=== PATIENT | female | born 1995 | race American Indian/Alaskan Native ===

== ENCOUNTER 2020-08-05 22:40 | Emergency (ER) | payer MEDICAID ==
[2020-08-06 00:34] VITALS: BP 117/59
[2020-08-06] MEDS ORDERED: dexAMETHasone 20 MG/5 ML VIAL IM ONE (02:36)
[2020-08-06] MEDS ORDERED: KETOROLAC 30 MG/1 ML INJ IM ONE (02:36)
--- NOTE | 2020-08-06 04:57 | Emergency Department Report ---
ED Extremity Problem HPI - General Chief complaint: Extremity Problem,Nontraumatic Stated complaint: LT ARM PAIN Source: patient Mode of arrival: Ambulatory Limitations: No Limitations - History of Present Illness Initial comments: Patient is a 24-year-old -[place] female with no past medical history presents to the ED with complaint of acute onset persistent left hand pain that radiates to the left wrist and left forearm for the last 1 month. Patient states that the pain is worse with any left thumb movement and that it gets worse and radiates to the left forearm. Patient states that she performs heavy lifting at work and that she was initially evaluated at an urgent care clinic and was given ibuprofen and a Velcro splint for the left wrist. Patient states that in the last 1 week, the pain has worsened especially in the last 2 days. Patient denies fall, traumatic injury, fever, chills, nausea, vomiting, numbness and tingling or weakness of left hand, neck pain, chest pain, shortness of breath or back pain. MD Complaint: extremity pain (left thumb, left wrist pain), joint paint (left wrist and hand pain) -: Sudden, month(s) (1) Location: left (hand), upper extremity (left hand and wrist) History of Same: Yes -: Yes arthralgia, No fever, No associated dyspnea, No associated chest pain Radiation: proximal Severity scale (0 -10): 7 Quality: aching, sharp Consistency: constant Improves with: nothing Worsens with: weight bearing, exertion, palpation Associated Symptoms: denies other symptoms, arthralgias (left hand and wrist pain). denies: chest pain, shortness of breath, fever, myalgias - Related Data Previous Rx's Medication Instructions Recorded Last Taken Type Gabapentin 300 mg PO BID #30 cap 08/06/20 Unknown Rx Prednisone [predniSONE 10 mg 10 mg PO .TAPER #21 tab.ds.pk 08/06/20 Unknown Rx (6-Day Pack, 21 Tabs)] traMADoL [Ultram] 50 mg PO Q6HR PRN #12 tablet 08/06/20 Unknown Rx ED Review of Systems ROS: Stated complaint: LT ARM PAIN Other details as noted in HPI Constitutional: denies: chills, fever Eyes: denies: eye pain, eye discharge, vision change ENT: denies: ear pain, throat pain Respiratory: denies: cough, shortness of breath, wheezing Cardiovascular: denies: chest pain, palpitations Endocrine: no symptoms reported Gastrointestinal: denies: abdominal pain, nausea, diarrhea Genitourinary: denies: urgency, dysuria, discharge Musculoskeletal: arthralgia (Left hand and wrist pain). denies: back pain, joint swelling Skin: denies: rash, lesions Neurological: denies: headache, weakness, paresthesias Psychiatric: denies: anxiety, depression Hematological/Lymphatic: denies: easy bleeding, easy bruising ED Past Medical Hx - Past Medical History Previous Medical History?: No - Surgical History Past Surgical History?: No - Social History Smoking Status: Never Smoker Substance Use Type: None - Medications Home Medications: Home Medications Medication Instructions Recorded Confirmed Last Taken Type Gabapentin 300 mg PO BID #30 cap 08/06/20 Unknown Rx Prednisone [predniSONE 10 mg 10 mg PO .TAPER #21 tab.ds.pk 08/06/20 Unknown Rx (6-Day Pack, 21 Tabs)] traMADoL [Ultram] 50 mg PO Q6HR PRN #12 tablet 08/06/20 Unknown Rx ED Physical Exam - General Limitations: No Limitations General appearance: alert, in no apparent distress - Head Head exam: Present: atraumatic, normocephalic, normal inspection - Eye Eye exam: Present: normal appearance, PERRL, EOMI Pupils: Present: normal accommodation - ENT ENT exam: Present: normal exam, normal orophraynx, mucous membranes moist, TM's normal bilaterally, normal external ear exam - Neck Neck exam: Present: normal inspection, full ROM - Respiratory Respiratory exam: Present: normal lung sounds bilaterally. Absent: respiratory distress, wheezes, rales, stridor, chest wall tenderness, decreased breath sounds, prolonged expiratory - Cardiovascular Cardiovascular Exam: Present: regular rate, normal rhythm, normal heart sounds. Absent: systolic murmur, diastolic murmur, rubs, gallop - GI/Abdominal GI/Abdominal exam: Present: soft, normal bowel sounds. Absent: tenderness, guarding, rebound, hyperactive bowel sounds, hypoactive bowel sounds - Extremities Exam Extremities exam: Present: normal inspection, full ROM, tenderness (Palpable left hand and thumb, as well as left wrist tenderness), normal capillary refill - Back Exam Back exam: Present: normal inspection, full ROM. Absent: tenderness, CVA tenderness (R), CVA tenderness (L), muscle spasm, paraspinal tenderness, vertebral tenderness - Neurological Exam Neurological exam: Present: alert, oriented X3, CN II-XII intact, normal gait, reflexes normal - Psychiatric Psychiatric exam: Present: normal affect, normal mood - Skin Skin exam: Present: warm, dry, intact, normal color. Absent: rash ED Course Vital Signs 08/06/20 00:30 Temperature 98.1 F Pulse Rate 70 Respiratory 17 Rate Blood Pressure 117/59 [Right] O2 Sat by Pulse 100 Oximetry ED Medical Decision Making - Medical Decision Making This is a 24-year-old -[place] female with no past medical history presents to the ED with complaint of acute onset persistent left hand pain that radiates to the left wrist and left forearm for the last 1 month. Patient states that the pain is worse with any left thumb movement and that it gets worse and radiates to the left forearm. Patient states that she performs heavy lifting at work and that she was initially evaluated at an urgent care clinic and was given ibuprofen and a Velcro splint for the left wrist. Patient states that in the last 1 week, the pain has worsened especially in the last 2 days. In the ED, patient is alert and oriented x3 and is not in distress. Patient was treated for pain in the ED and on reevaluation, patient's pain is well controlled with medications. Patient was discharged home on oral pain medications and advised to follow-up with her primary care physician in 7 to 10 days for reevaluation or return to the ED immediately if symptoms get worse. - Differential Diagnosis Tendinitis; muscle strain; muscle spasm; osteoarthritis; carpal tunnel synd Critical care attestation.: If time is entered above; I have spent that time in minutes in the direct care of this critically ill patient, excluding procedure time. ED Disposition Clinical Impression: Tendinitis of finger of left hand, Left wrist tendinitis Disposition: - TO HOME OR SELFCARE Is pt being admited?: No Does the pt Need Aspirin: No Condition: Stable Instructions: Extensor Pollicis Longus Tendinitis, Tendinitis, [id number] Additional Instructions: Your symptoms likely due to tendinitis or inflammation of the tendons of your left hand and wrist. Therefore take medications as advised, drink plenty of fluids and follow-up with your primary care physician in 7 to 10 days for reevaluation. Return to the ED immediately if symptoms get worse. Prescriptions: Gabapentin 300 mg PO BID #30 cap Prednisone [predniSONE 10 mg (6-Day Pack, 21 Tabs)] 10 mg PO .TAPER #21 tab.ds.pk traMADoL [Ultram] 50 mg PO Q6HR PRN #12 tablet PRN Reason: Pain Referrals: [facility] [Provider Group] - 3-5 Days Forms: Work/School Release Form(ED) Time of Disposition: 04:56 Print Language: [place]
== END 2020-08-06 05:40 | disposition home or self-care (01) ==
LOC: ED 22:40
DX: M79.642 Pain in left hand (principal); M77.8 Other enthesopathies, not elsewhere classified
CPT/HCPCS: 96372; 99282; J1100; J1885